=== PATIENT | female | born 1965 | race African-American/Black ===

== ENCOUNTER 2017-07-30 23:37 | Inpatient (IN) | payer MEDICAID ==
[~2017-07-30] VITALS: Ht 160 cm; Wt 77.2 kg
[2017-07-31 02:42] LABS: PLATELET COUNT 310 x10^3mcL (130-400); RED CELL DISTRIBUTION WIDTH 13.8 % (11.5-14.5)
[2017-07-31 02:54] LABS: ALKALINE PHOSPHATASE 87 U/L (46-116); ALT/SGPT 33 U/L (14-59); AST/SGOT 31 U/L (15-37); BILIRUBIN TOTAL 0.35 mg/dL (0.20-1.00); CARBON DIOXIDE 27.4 mmol/L (21-32); CHLORIDE SERUM 109 mmol/L (98-107); GLUCOSE SERUM 115 mg/dL (74-106); POTASSIUM SERUM 3.8 mmol/L (3.5-5.1); SODIUM SERUM 144 mmol/L (136-145); TOTAL PROTEIN, SERUM 6.8 g/dL (6.4-8.2)
[2017-07-31 03:12] LABS: ALBUMIN 3.6 g/dL (3.4-5.0); CALCIUM 8.8 mg/dL (8.5-10.1); CREATININE SERUM 0.6 mg/dL (0.6-1.0); FREE T4 1.05 ng/dL (0.76-1.46); GFR1 > 60 mL/min
[2017-07-31 03:52] LABS: AMPHETAMINE QUAL UR NONE DETECTED (NEG <=1000)
[2017-07-31 15:27] LABS: microscopic required? NO
[2017-07-31 15:32] LABS: UA SPECIFIC GRAVITY >=1.030 (1.005-1.035); urine erythrocyte NEGATIVE (NEGATIVE)
[2017-07-31 15:45] LABS: MAGNESIUM 2.1 mg/dL (1.8-2.4); PHOSPHOROUS 3.6 mg/dL (2.5-4.9)
[2017-07-31 15:51] LABS: T3 TOTAL 1.16 ng/mL
[2017-07-31 15:53] LABS: CHOLESTEROL/HDL RATIO 3.3
[2017-07-31 15:54] LABS: FREE T4 1.09 ng/dL (0.76-1.46); FREE THYROXINE INDEX 3.2 ug/dL (1.4-4.5); T4(THYROXINE) 8.4 ug/dL (4.7-13.3)
[2017-07-31 16:26] VITALS: BP 116/60
[2017-07-31 16:35] VITALS: Ht 160 cm; Wt 77.2 kg
[2017-08-01 05:34] VITALS: BP 118/82
[2017-08-01 06:34] LABS: BASOPHIL % 0.9 % (0-2); PLATELET COUNT 311 x10^3mcL (130-400)
[2017-08-01 06:50] LABS: RED CELL DISTRIBUTION WIDTH 15.3 % (11.5-14.5)
[2017-08-01 06:57] LABS: CARBON DIOXIDE 28.1 mmol/L (21-32); CHLORIDE SERUM 110 mmol/L (98-107); CREATININE SERUM 0.7 mg/dL (0.6-1.0); GFR1 > 60 mL/min; GLUCOSE SERUM 80 mg/dL (74-106); MAGNESIUM 1.8 mg/dL (1.8-2.4); PHOSPHOROUS 3.9 mg/dL (2.5-4.9); POTASSIUM SERUM 4.1 mmol/L (3.5-5.1); SODIUM SERUM 144 mmol/L (136-145)
[2017-08-01 10:16] VITALS: BP 149/95
[2017-08-01 13:26] VITALS: BP 136/84
[2017-08-01 17:38] VITALS: BP 131/80
== END 2017-08-02 09:07 | disposition left against medical advice (07) | DRG 750 ==
LOC: ED 23:37 → EDBD 23:37 → ED 07-31 14:42 → MU 07-31 14:42 → DU 07-31 14:42 → MU 08-01 14:46
PROVIDERS: Emergency Medicine; Family Medicine
DX: F20.1 Disorganized schizophrenia (principal); N17.0 Acute kidney failure with tubular necrosis; G93.41 Metabolic encephalopathy; E87.8 Other disorders of electrolyte and fluid balance, not elsewhere classified; D68.69 Other thrombophilia; Z59.0 Homelessness; Z91.19 Patient's noncompliance with other medical treatment and regimen; I16.0 Hypertensive urgency; Z53.29 Procedure and treatment not carried out because of patient's decision for other reasons; R73.03 Prediabetes; E78.5 Hyperlipidemia, unspecified; F17.210 Nicotine dependence, cigarettes, uncomplicated; Z53.21 Procedure and treatment not carried out due to patient leaving prior to being seen by health care provider; Z68.27 Body mass index [BMI] 27.0-27.9, adult
CPT/HCPCS: 83880; 84439; G0480; J1630; J2060; J3486; J7030